=== PATIENT | female | born 1935 | race Caucasian/White ===

== ENCOUNTER 2016-07-07 11:10 | Observation (INO) | payer MEDICARE, BC ==
[~2016-07-07] VITALS: Ht 162.6 cm; Wt 52.1 kg
[~2016-07-07 11:10] MED LIST: ASPI-147 PO; ATOR20TA15 PO; BIOT1SUB SL; COQ1100C PO; ESCI10TA PO; MULT-136 PO; OMEGCAP PO; TELM5TAB PO; TEMA15CA PO
[2016-07-07 11:45] VITALS: BP 162/75; PULSE 92; RESP 20; TEMP 98.8; O2SAT 97
[2016-07-07] MEDS ORDERED: METOPROLOL TARTRATE 25 MG TAB PO PRN (11:45)
[2016-07-07] MEDS ORDERED: INSULIN HUMAN REGULAR 1,000 UNITS/10 ML VIAL SQ PRN (11:45)
[2016-07-07] MEDS ORDERED: POVIDONE IODINE 5% (ANTISEPSIS KIT) 4 APPLICATIONS EACH NARE PRN (11:45)
[2016-07-07] MEDS ORDERED: CHLORHEXIDINE GLUCONATE 2 % 1 PACK (2 CLOTHS) TOPICAL PRN (11:45)
[2016-07-07] MEDS ORDERED: SODIUM CHLORID 0.9% 500 ML IV PRN (11:45)
[2016-07-07] MEDS ORDERED: LACTATED RINGER'S 1000 ML IV PRN (11:45)
[2016-07-07] MEDS ORDERED: ceFAZolin 1,000 MG/NS 100 ML IV SCH ×2 (11:45)
[2016-07-07] MEDS ORDERED: HEPARIN SODIUM - SQ 10,000 UNITS/ML VIAL ONE (11:48)
[2016-07-07] MEDS ORDERED: HEPARIN SODIUM - IV 10,000 UNITS/10 ML VIAL ONE (11:48)
[2016-07-07] MEDS ORDERED: BUPIVACAINE/EPINEPHRINE 0.5% PF 30 ML VIAL ONE (11:48)
[2016-07-07] MEDS ORDERED: PROTAMINE SULFATE 50 MG/5 ML VIAL ONE (11:48)
[2016-07-07] MEDS ORDERED: LACTATED RINGER'S 1000 ML INJ 1,000 ML IV ONE (12:00)
[2016-07-07] MEDS ORDERED: IOHEXOL 300 MG/ML 50 ML BTL (for RAD DIAG) IV ONE (12:00)
[2016-07-07] MEDS ORDERED: SODIUM CHLORID 0.9% 500 ML INJ 500 ML IV ONE (12:00)
[2016-07-07] MEDS ORDERED: PHENYLEPH/NS 1000 MCG/10 ML SYR IV ONE (12:00)
[2016-07-07] MEDS ORDERED: PROPOFOL 200 MG/20 ML AMP IV ONE (12:00)
[2016-07-07 12:22] LABS: AUTOMATED NEUTROPHIL # 4.4 TH/MM3 (1.8-7.7); BASOPHIL % 0.3 % (0.0-2.0); EOSINOPHIL % 0.5 % (0.0-4.0); HEMATOCRIT 41.9 % (35.0-46.0); HEMO FLAGS DIFF FINAL; LYMPH % 23.7 % (9.0-44.0); LYMPHOCYTE # 1.5 TH/MM3 (1.0-4.8); MEAN CELL VOLUME 89.9 FL (80.0-100.0); MEAN CORPUSCULAR HEMOGLOBIN 31.1 PG (27.0-34.0); MEAN CORPUSCULAR HGB CONC 34.6 % (32.0-36.0); MONO % 5.7 % (0.0-8.0); NEUT % 69.8 % (16.0-70.0); PLATELET COUNT 229 TH/MM3 (150-450); RED BLOOD COUNT 4.66 MIL/MM3 (4.00-5.30); WHITE BLOOD COUNT 6.3 TH/MM3 (4.0-11.0)
[2016-07-07 12:27] LABS: APTT (PATIENT) 23.9 SEC (24.3-30.1); INTERNATIONAL NORMALIZED RATIO 0.9 RATIO
[2016-07-07 12:36] LABS: BICARBONATE 30.3 MEQ/L (21.0-32.0); POTASSIUM 3.7 MEQ/L (3.5-5.1)
[2016-07-07] MEDS ORDERED: FAMOTIDINE 20 MG/2 ML VIAL ONE (12:59)
[2016-07-07] MEDS ORDERED: MIDAZOLAM HCL 2 MG/2 ML VIAL ONE (12:59)
[2016-07-07] MEDS ORDERED: DEXAMETHASONE SOD PHOS 4 MG/ML VIAL ONE (13:03)
[2016-07-07] MEDS ORDERED: DO NOT ADM ANY ANTICOAGULANT DRUGS PRN (15:45)
[2016-07-07] MEDS ORDERED: *LABETALOL HCL 100 MG/20 ML VIAL PERIprocedural Use ONLY ONE (15:47)
[2016-07-07] MEDS ORDERED: *ENALAPRILAT 1.25 MG/ML VIAL PERIprocedural Use ONLY ONE (15:49)
[2016-07-07] MEDS ORDERED: TEMAZEPAM 15 MG CAP PO PRN (16:00)
[2016-07-07] MEDS ORDERED: CLOPIDOGREL 300 MG TAB ONE (16:28)
[2016-07-07] MEDS ORDERED: CLOPIDOGREL 75 MG TAB PO ONE (17:00)
[2016-07-07 19:20] VITALS: BP 133/84; PULSE 68; RESP 16; TEMP 98.3; O2SAT 100
[2016-07-07 20:00] VITALS: PULSE 71
--- NOTE | 2016-07-07 20:06 | EKG ---
Date Performed: 07/07/2016 Time Performed: 11:43:06 PTAGE: 81 years EKG: Sinus rhythm NORMAL ECG PREVIOUS TRACING : 03/02/2012 11.49 Compared to prior tracing no significant change DOCTOR: Denae Monahan Interpretating Date/Time 07/07/2016 20:05:11
--- NOTE | 2016-07-07 20:43 | MP ---
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 PROCEDURE Selective right femoral-popliteal tibial angiography. Right SFA percutaneous balloon angioplasty and stent placement. SURGEON Duane Phan MD ANESTHESIA Local MAC DESCRIPTION OF PROCEDURE With the patient in the supine position, IV sedation was induced, the lower abdomen, both thighs prepped with Betadine and draped in a sterile fashion. One gram of Ancef was administered prophylactically and following a protocol time-out, the skin and subcutaneous tissue surrounding the proposed left common femoral access site preemptively infiltrated with 0.5% Marcaine with epinephrine. Utilizing ultrasound guidance, an 18 gauge needle was inserted into the left mid common femoral lumen and a J-wire advanced under fluoroscopic guidance into the iliac artery. The 18 gauge needle was exchanged for a 5-Zimbabwean hemostatic sheath. An Advantage guidewire Omni catheter combination was initiated retrograde into the sub renal aorta. Diluted contrast was injected into the Omni catheter. The distal aorta, both common internal and external iliac arteries were widely patent. Both common femoral arteries also were widely patent with unrestricted flow into the profunda and superficial femoral arteries bilaterally. The Advantage guidewire was navigated into the right common femoral lumen. The Omni catheter was exchanged for a Quick-Cross catheter. Selective angiography of the right lower extremity was completed by injecting diluted contrast via the Quick-Cross catheter in conjunction with digital C-arm fluoroscopic imaging. This confirmed a focal occlusion of the mid SFA. The distal SFA reconstituted as did the above and below the popliteal without significant constriction distally. However, the posterior tibial was completely occluded throughout. The anterior tibial occluded immediately distal to its origin. The peroneal provided dominant, uninterrupted flow to the right foot. 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 The short 5-Zimbabwean sheath was exchanged for a 35 cm 6-Zimbabwean sheath which was guided over the Advantage guidewire and navigated under fluoroscopic guidance into the proximal right SFA. Utilizing roadmapping guidance, the focal right SFA occlusion was balloon angioplastied with a 4 x 30 mm balloon inflated to 10 atmospheres, two separate inflations of 2 minutes each. The lateral wall of the occlusion could not be fully distended due to apparent lateral wall eccentric calcification. Following angioplasty, incomplete dilatation of the occlusion remained, approximately 40% stenosis. Thus a balloon expandable 4 x 19 mm balloon expandable stent was deployed. Completion angiogram revealed a less than 10% residual eccentric constriction with rapid flow distally. No distal technical defects. After deployment of the 6-Zimbabwean hemostatic sheath, the patient was systemically heparinized with 5000 units and ACT measured 313. At the conclusion of the procedure heparin was not reversed. The long 6-Zimbabwean sheath was exchanged for a short 6-Zimbabwean sheath. The patient returned to the recovery room in stable condition having tolerated the procedure well. MD JACQUES Diop/KK /3:38 PM /8:26 PM
[2016-07-07 21:00] VITALS: PULSE 81
[2016-07-07] MEDS ORDERED: ATORVASTATIN 20 MG TAB PO SCH (21:00)
[2016-07-07 22:00] VITALS: PULSE 75
[2016-07-07 23:00] VITALS: BP 159/79; PULSE 77; RESP 16; TEMP 98; O2SAT 97
[2016-07-08] VITALS (15 sets, daily range): BP systolic 100–155; BP diastolic 46–72; PULSE 67–92; RESP 16; TEMP 97.6–97.7; O2SAT 97–99
[2016-07-08] MEDS ORDERED: CLOPIDOGREL 75 MG TAB PO ONE (04:45)
[2016-07-08] MEDS ORDERED: CLOPIDOGREL 75 MG TAB PO SCH (09:00)
[2016-07-08] MEDS ORDERED: LOSARTAN 25 MG TAB PO SCH (09:00)
[2016-07-08] MEDS ORDERED: ESCITALOPRAM OXALATE 10 MG TAB PO SCH (09:00)
[2016-07-08] MEDS ORDERED: ASPIRIN EC 81 MG TABEC PO SCH (09:00)
[2016-07-08] MEDS ORDERED: PLAV75TA29 PO (11:36)
[2016-07-09] MEDS ORDERED: CLOPIDOGREL 75 MG TAB PO SCH (09:00)
== END 2016-07-08 14:15 | disposition home or self-care (01) ==
LOC: HSDC 11:10 → HCIN 19:05
PROVIDERS: ADMIT Surgery Vascular Surgery; ATTEND Surgery Vascular Surgery
DX: I70.211 Atherosclerosis of native arteries of extremities with intermittent claudication, right leg (principal); I70.92 Chronic total occlusion of artery of the extremities; I10 Essential (primary) hypertension; E78.00 Pure hypercholesterolemia, unspecified; K21.9 Gastro-esophageal reflux disease without esophagitis; Z95.828 Presence of other vascular implants and grafts; Z85.038 Personal history of other malignant neoplasm of large intestine; Z79.82 Long term (current) use of aspirin
CPT/HCPCS: 37226; 75710; 80048; 85025; 85610; 85730; 86077; 86850; 86870; 86900; 86901; 86902; 86920; 86922; 93005; C1725; C1769; C1876; G0378; J0690; J1100; J1644; J2250; J2370; J2720; J3010; J7040; J7120; Q9967